=== PATIENT | female | born 1990 | race Asian ===

== ENCOUNTER 2018-12-06 07:00 | Inpatient (IN) | payer OTHER ==
[~2018-12-06 07:00] MED LIST: EPHEDrine SULFATE 50 MG/5 ML SYG
[2018-12-06] MEDS ORDERED: CEFAZOLIN 2 GM/50 ML (PMX) 50 ML IVPB ×2 (08:00→12:30)
[2018-12-06] MEDS ORDERED: CARBOPROST 250 MCG INJ IM ×2 (08:00→12:30)
[2018-12-06] MEDS ORDERED: MISOPROSTOL 200 MCG TAB PR ×2 (08:00→12:30)
[2018-12-06] MEDS: LACTATED RINGER'S 1,000 ML IV (08:00)
[2018-12-06] MEDS ORDERED: METHYLERGONOVINE 0.2 MG INJ IM ×2 (08:00→12:30)
[2018-12-06] MEDS ORDERED: OXYTOCIN 30 UNITS/LR 500 ML IV ×3 (08:00→12:30)
[2018-12-06 08:19] LABS: ADD MAN DIFF? NO
[2018-12-06 08:24] LABS: BASOPHILS % 0.4 % (0.0-2.0); EOSINOPHILS # 0.1 10^3/ul (0.0-0.5); EOSINOPHILS % 0.5 % (0.0-7.0); HEMATOCRIT 36.5 % (37.0-47.0); HEMOGLOBIN 12.1 g/dl (12.0-16.0); LYMPHOCYTES # 2.4 10^3/ul (0.8-2.9); LYMPHOCYTES % 23.3 % (15.0-51.0); MEAN CORPUSCULAR HEMOGLOBIN 29.4 pg (29.0-33.0); MEAN CORPUSCULAR HGB CONC 33.2 g/dl (32.0-37.0); MEAN CORPUSCULAR VOLUME 88.8 fl (82.0-101.0); MEAN PLATELET VOLUME 10.8 fl (7.4-10.4); MONOCYTE # 0.6 10^3/ul (0.3-0.9); MONOCYTES % 6.1 % (0.0-11.0); NEUTROPHIL # 7.1 10^3/ul (1.6-7.5); NEUTROPHILS % 68.1 % (39.0-77.0); PLATELET COUNT 252 10^3/UL (140-415); RED BLOOD COUNT 4.11 10^6/ul (4.20-5.40); RED CELL DISTRIBUTION WIDTH 12.6 % (11.5-14.5)
[2018-12-06 08:24] LABS: WHITE BLOOD COUNT 10.4 10^3/ul (4.8-10.8)
[2018-12-06 08:43] LABS: INR 0.87; PROTIME 11.9 Sec (11.9-14.9); PT RATIO 0.9
[2018-12-06 08:44] LABS: PARTIAL THROMBOPLASTIN TIME 29.1 Sec (23.0-35.0)
[2018-12-06] MEDS ORDERED: NALOXONE (0.4 MG/ML) INJ IV (11:00)
[2018-12-06] MEDS ORDERED: HYDROmorphONE 0.5 MG/0.5 ML SYG IV ×2 (11:00)
[2018-12-06] MEDS ORDERED: KETOROLAC 30 MG INJ IV (11:00)
[2018-12-06] MEDS ORDERED: DIPHENHYDRAMINE 50 MG INJ IV (11:00)
[2018-12-06] MEDS ORDERED: ZOLPIDEM 5 MG TAB PO (11:00)
[2018-12-06] MEDS ORDERED: morphine SULFATE/PF (10 MG/10 ML) INJ (11:03)
[2018-12-06] MEDS ORDERED: FENTAnyl 50 MCG/ML VIAL (11:03)
[2018-12-06] MEDS ORDERED: DEXAMETHASONE 4 MG/ML 1 ML INJ (11:15)
[2018-12-06] MEDS ORDERED: ONDANSETRON 4 MG INJ (11:15)
[2018-12-06] MEDS ORDERED: FAMOTIDINE 20 MG INJ (11:18)
[2018-12-06] MEDS ORDERED: METOCLOPRAMIDE 10 MG INJ (11:18)
[2018-12-06] MEDS ORDERED: PHENYLephrine (100 MCG/ML) 5ML SYG (11:20)
[2018-12-06] MEDS: OXYTOCIN 30 UNITS/LR 500 ML IV ×2 (12:14→17:07)
[2018-12-06] MEDS ORDERED: OXYCODONE/ACETAMINOPHEN (5/325) TAB PO ×2 (12:30)
[2018-12-06] MEDS ORDERED: NACL 0.9% 3 ML SYG IV (12:30)
[2018-12-06] MEDS ORDERED: LANOLIN HPA 1 PKT TOP (12:30)
[2018-12-06 14:06] LABS: ADD MAN DIFF? NO
[2018-12-06 14:07] LABS: WHITE BLOOD COUNT 9.9 10^3/ul (4.8-10.8)
[2018-12-06 14:07] LABS: BASOPHILS % 0.3 % (0.0-2.0); EOSINOPHILS # 0.1 10^3/ul (0.0-0.5); EOSINOPHILS % 0.5 % (0.0-7.0); HEMOGLOBIN 11.9 g/dl (12.0-16.0); LYMPHOCYTES # 2.2 10^3/ul (0.8-2.9); MEAN CORPUSCULAR HEMOGLOBIN 29.8 pg (29.0-33.0); MEAN CORPUSCULAR HGB CONC 33.1 g/dl (32.0-37.0); MONOCYTE # 0.5 10^3/ul (0.3-0.9); NEUTROPHILS % 70.9 % (39.0-77.0); PLATELET COUNT 238 10^3/UL (140-415); RED CELL DISTRIBUTION WIDTH 12.7 % (11.5-14.5)
[2018-12-06 16:48] LABS: RAPID PLASMA REAGIN NONREACTIVE (NR)
[2018-12-06] MEDS: CEFAZOLIN 2 GM/50 ML (PMX) 50 ML IVPB (17:06)
[2018-12-06] MEDS: ONDANSETRON 4 MG INJ IV (17:35)
[2018-12-06] MEDS: SENNA/DOCUSATE NA (8.6MG/50MG) TAB PO (21:35)
[2018-12-07] MEDS: CEFAZOLIN 2 GM/50 ML (PMX) 50 ML IVPB ×2 (01:04→09:12)
[2018-12-07] MEDS: LACTATED RINGER'S 1,000 ML IV ×2 (05:39→09:30)
[2018-12-07] MEDS: SENNA/DOCUSATE NA (8.6MG/50MG) TAB PO ×2 (09:12→21:02)
[2018-12-07 12:19] LABS: ADD MAN DIFF? NO
[2018-12-07 12:20] LABS: BASOPHIL # 0.1 10^3/ul (0.0-0.1); BASOPHILS % 0.5 % (0.0-2.0); EOSINOPHILS % 0.2 % (0.0-7.0); HEMATOCRIT 34.4 % (37.0-47.0); HEMOGLOBIN 11.4 g/dl (12.0-16.0); LYMPHOCYTES # 2.1 10^3/ul (0.8-2.9); LYMPHOCYTES % 19.1 % (15.0-51.0); MEAN CORPUSCULAR HEMOGLOBIN 29.4 pg (29.0-33.0); MEAN CORPUSCULAR HGB CONC 33.1 g/dl (32.0-37.0); MEAN CORPUSCULAR VOLUME 88.7 fl (82.0-101.0); MEAN PLATELET VOLUME 10.3 fl (7.4-10.4); MONOCYTE # 0.6 10^3/ul (0.3-0.9); MONOCYTES % 5.2 % (0.0-11.0); NEUTROPHIL # 8.3 10^3/ul (1.6-7.5); NEUTROPHILS % 74.3 % (39.0-77.0); PLATELET COUNT 229 10^3/UL (140-415); RED BLOOD COUNT 3.88 10^6/ul (4.20-5.40); RED CELL DISTRIBUTION WIDTH 12.6 % (11.5-14.5)
[2018-12-07 12:20] LABS: WHITE BLOOD COUNT 11.1 10^3/ul (4.8-10.8)
[2018-12-07] MEDS: IBUPROFEN 600 MG TAB PO (18:55)
[2018-12-08] MEDS: IBUPROFEN 600 MG TAB PO ×5 (05:41→23:49)
[2018-12-08] MEDS: SENNA/DOCUSATE NA (8.6MG/50MG) TAB PO ×2 (08:47→22:09)
[2018-12-09] MEDS: IBUPROFEN 600 MG TAB PO ×2 (05:40→11:15)
[2018-12-09] MEDS: SENNA/DOCUSATE NA (8.6MG/50MG) TAB PO (11:15)
== END 2018-12-09 18:00 | disposition home or self-care (01) | DRG 788 ==
LOC: L-D 07:00 → PP1 15:24
PROVIDERS: Obstetrics & Gynecology
PROC: 10D00Z1 Extraction of Products of Conception, Low, Open Approach (ICD-10-PCS; principal; 2018-12-06 09:00)
DX: O34.219 Maternal care for unspecified type scar from previous cesarean delivery (principal); Z3A.39 39 weeks gestation of pregnancy; Z37.0 Single live birth
CPT/HCPCS: 85025; 85610; 85730; 86592; 86850; 86900; 86901; 99464